=== PATIENT | female | born 1995 | race Caucasian/White ===

== ENCOUNTER 2017-02-14 07:04 | Observation (INO) | payer OTHER ==
[~2017-02-14] VITALS: Ht 165.1 cm; Wt 74.4 kg
== END 2017-02-14 08:20 | disposition home or self-care (01) ==
LOC: INTOOBSV 07:04 → 3 SO LND 07:04
PROVIDERS: ADMIT Obstetrics & Gynecology; ATTEND Obstetrics & Gynecology
DX: O26.892 Other specified pregnancy related conditions, second trimester (principal); R10.9 Unspecified abdominal pain; Z3A.22 22 weeks gestation of pregnancy
CPT/HCPCS: G0378; G0379

== ENCOUNTER 2017-10-31 12:11 | Emergency (ER) | payer OTHER ==
[2017-10-31] MEDS: IV NORMAL SALINE 1000ML BAG 1,000 ML IV ×2 (13:21→14:00)
[2017-10-31] MEDS: ONDANSETRON ODT 4 MG TAB.RAPDIS. PO ×2 (13:30→13:50)
[2017-10-31 13:38] LABS: ADD MAN DIFF? NO
[2017-10-31 13:41] LABS: BASO % 1 % (0-3); EOS % 0 % (0-3); HEMATOCRIT 42.9 % (36.0-47.0); HEMOGLOBIN 15.5 g/dL (12.0-15.5); LYMPH # 1.6 x10^3/uL (1.0-4.8); LYMPH % 23 % (24-48); MEAN CORPUSCULAR HEMOGLOBIN 33 pg (25-35); MEAN CORPUSCULAR HGB CONC 36 g/dL (31-37); MEAN CORPUSCULAR VOLUME 91 fL (79-100); MONO # 0.2 x10^3/uL (0.0-1.1); MONO % 3 % (0-9); NEUT # 5.1 x10^3uL (1.8-7.7); NEUT % 73 % (31-73); PLATELET COUNT 370 x10^3/uL (140-400); RED BLOOD COUNT 4.74 x10^6/uL (3.50-5.40); RED CELL DISTRIBUTION WIDTH 12.6 % (11.5-14.5)
[2017-10-31] MEDS: LIDO:MAALOX 1:1 20 ML SINGLE DOSE. PO (13:45)
[2017-10-31 13:48] LABS: ANION GAP 10 (6-14); BLOOD UREA NITROGEN 11 mg/dL (7-20); BUN/CREATININE RATIO 14 (6-20); CALCIUM 8.9 mg/dL (8.5-10.1); CARBON DIOXIDE 25 mmol/L (21-32); CHLORIDE 104 mmol/L (98-107); CREATININE 0.8 mg/dL (0.6-1.0); GFR 88.1; GLUCOSE 117 mg/dL (70-99); POTASSIUM 3.9 mmol/L (3.5-5.1); SODIUM 139 mmol/L (136-145)
[2017-10-31] MEDS: PANTOPRAZOLE 40 MG TABLET.DR. PO (13:50)
[2017-10-31] MEDS: LIDO:MAALOX 1:1 20 ML SINGLE DOSE. SWSW (13:50)
[2017-10-31 13:54] LABS: ALK PHOS 85 U/L (46-116); ALT (SGPT) 67 U/L (14-59); AST (SGOT) 24 U/L (15-37); LIPASE 166 U/L (73-393); TOTAL BILIRUBIN 0.1 mg/dL (0.2-1.0)
[2017-10-31 15:30] LABS: URINE HCG POC HCG NEGATIVE (Negative)
[2017-10-31 15:30] LABS: BILIRUBIN,URINE NEGATIVE (NEG); CLARITY,URINE CLEAR; COLOR,URINE YELLOW; GLUCOSE,URINE NEGATIVE (NEG); NITRITE,URINE NEGATIVE (NEG); PROTEIN,URINE NEGATIVE (NEG-TRACE); UROBILINOGEN,URINE 0.2 mg/dL (0.2 mg/dL)
[2017-10-31 15:38] LABS: BACTERIA,URINE MOD /HPF (0-FEW); RBC,URINE 0 /HPF (0-2); SQUAMOUS EPITHELIAL CELL,UR MOD /LPF; WBC,URINE OCC /HPF (0-4)
== END 2017-10-31 16:00 | disposition home or self-care (01) ==
LOC: ER 12:11
DX: K29.70 Gastritis, unspecified, without bleeding (principal); Z87.891 Personal history of nicotine dependence; Z90.49 Acquired absence of other specified parts of digestive tract
CPT/HCPCS: 36415; 80053; 81001; 81025; 83690; 85025; 96360; 99284-25; J7030; Q0162

== ENCOUNTER 2017-12-04 08:51 | Emergency (ER) | payer OTHER ==
[2017-12-04 09:20] LABS: URINE HCG POC HCG NEGATIVE (Negative)
[2017-12-04] MEDS: ACETAMINOPHEN 500 MG TABLET PO (10:01)
[2017-12-04 10:08] LABS: ADD MAN DIFF? NO
[2017-12-04] MEDS: AZITHROMYCIN 250 MG TABLET. PO (10:12)
[2017-12-04] MEDS: metroNIDAZOLE 500 MG TABLET PO (10:13)
[2017-12-04 10:15] LABS: BASO % 1 % (0-3); EOS # 0.1 x10^3/uL (0.0-0.7); EOS % 2 % (0-3); HEMATOCRIT 40.7 % (36.0-47.0); HEMOGLOBIN 13.9 g/dL (12.0-15.5); LYMPH # 2.3 x10^3/uL (1.0-4.8); LYMPH % 30 % (24-48); MEAN CORPUSCULAR HEMOGLOBIN 32 pg (25-35); MEAN CORPUSCULAR HGB CONC 34 g/dL (31-37); MEAN CORPUSCULAR VOLUME 92 fL (79-100); MONO # 0.5 x10^3/uL (0.0-1.1); MONO % 7 % (0-9); NEUT # 4.7 x10^3uL (1.8-7.7); NEUT % 61 % (31-73); PLATELET COUNT 348 x10^3/uL (140-400); RED BLOOD COUNT 4.42 x10^6/uL (3.50-5.40); RED CELL DISTRIBUTION WIDTH 12.6 % (11.5-14.5); WHITE BLOOD COUNT 7.8 x10^3/uL (4.0-11.0)
[2017-12-04] MEDS: cefTRIAXone IM 250 MG VIAL IM (10:18)
[2017-12-04 10:19] LABS: BILIRUBIN,URINE NEGATIVE (NEG); CLARITY,URINE CLEAR; COLOR,URINE YELLOW; GLUCOSE,URINE NEGATIVE (NEG); NITRITE,URINE NEGATIVE (NEG); PROTEIN,URINE NEGATIVE (NEG-TRACE); UROBILINOGEN,URINE 0.2 mg/dL (0.2 mg/dL)
[2017-12-04 10:29] LABS: ANION GAP 9 (6-14); BLOOD UREA NITROGEN 8 mg/dL (7-20); BUN/CREATININE RATIO 10 (6-20); CALCIUM 8.8 mg/dL (8.5-10.1); CARBON DIOXIDE 25 mmol/L (21-32); CHLORIDE 104 mmol/L (98-107); CREATININE 0.8 mg/dL (0.6-1.0); GFR 88.1; GLUCOSE 113 mg/dL (70-99); SODIUM 138 mmol/L (136-145)
[2017-12-04 10:43] LABS: ALBUMIN 3.9 g/dL (3.4-5.0); ALBUMIN/GLOBULIN RATIO 1.3 (1.0-1.7); ALK PHOS 71 U/L (46-116); ALT (SGPT) 30 U/L (14-59); AST (SGOT) 15 U/L (15-37); TOTAL BILIRUBIN 0.3 mg/dL (0.2-1.0)
[2017-12-04 11:03] LABS: BACTERIA,URINE FEW /HPF (0-FEW); SQUAMOUS EPITHELIAL CELL,UR FEW /LPF; WBC,URINE OCC /HPF (0-4)
[2017-12-04] MEDS ORDERED: ONDANSETRON ODT 4 MG TAB.RAPDIS. PO (12:15)
[2017-12-06 14:25] LABS: CHLAMYDIA PROBE Negative (Negative); GC PROBE Negative (Negative)
== END 2017-12-04 11:56 | disposition home or self-care (01) ==
LOC: ER 11:56
DX: O20.0 Threatened abortion (principal); O46.91 Antepartum hemorrhage, unspecified, first trimester; Z3A.08 8 weeks gestation of pregnancy
CPT/HCPCS: 36415; 76801; 76817; 80053; 81001; 81025; 84702; 85025; 86850; 86900; 86901; 87086; 87491; 87591; 96372; 99285-25; J0696; Q0111; Q0144